=== PATIENT | female | born 1985 | race Caucasian/White ===

== ENCOUNTER 2018-08-12 14:14 | Emergency (ER) | payer SELFPAY ==
[2018-08-12] MEDS ORDERED: Albuterol/Ipratropium 3.0-0.5 MG/3 ML Neb Soln NEB ONE (14:38)
[2018-08-12] MEDS ORDERED: Ketorolac 60 MG/2 ML SDV IM ONE (14:38)
--- NOTE | 2018-08-12 14:43 | EDM.PDOC ---
ED HPI GENERAL MEDICAL PROBLEM - General Chief Complaint: Respiratory Problem Stated Complaint: PAIN IN RIBS Time Seen by Provider: 08/12/18 14:21 Source of Information: Reports: Patient History Limitations: Reports: No Limitations - History of Present Illness INITIAL COMMENTS - FREE TEXT/NARRATIVE: History of present illness: []Patient fell 2 weeks ago hitting her left ribs and has had pain with breathing and has developed cough severe pain in the left ribs. Fevers, chills or shortness of breath. Review of systems: As per history of present illness and below otherwise all systems reviewed and negative. Past medical history: As per history of present illness and as reviewed below otherwise noncontributory. Surgical history: As per history of present illness and as reviewed below otherwise noncontributory. Social history: No reported history of drug or alcohol abuse. Family history: As per history of present illness and as reviewed below otherwise noncontributory. Physical exam: General: Well developed, well nourished in NAD HEENT: Atraumatic, normocephalic, pupils reactive, negative for conjunctival pallor or scleral icterus, mucous membranes moist, throat clear, neck supple, nontender, trachea midline. Lungs: Wheezing and coarse to auscultation, breath sounds equal bilaterally, chest tender, no crepitance. Heart: S1S2, regular, negative for clicks, rubs, or JVD. Abdomen: NABS, Soft, nondistended, nontender. Negative for masses or hepatosplenomegaly. Negative for costovertebral tenderness. Pelvis: Stable nontender. Genitourinary: Deferred. Rectal: Deferred. Extremities: Atraumatic, negative for cords or calf pain. Neurovascular unremarkable. Neuro: Awake, alert, oriented. Cranial nerves II through XII unremarkable. Cerebellum unremarkable. Motor and sensory unremarkable throughout. Exam nonfocal. Skin:warm and dry Diagnostics: Chest x-ray with left rib films-no pneumothorax Therapeutics: Toradol, DuoNeb ED Course: Stable Impression: Left eighth and ninth rib mild buckling fractures, nondisplaced Prescriptions: Albuterol, tramadol Plan: Take meds as directed, follow up with your primary care physician, return to ER if symptoms worsen or change. Definitive disposition and diagnosis as appropriate pending reevaluation and review of above. Left Chest Pain Score (Numeric/FACES): 8 - Related Data Allergies Allergy/AdvReac Type Severity Reaction Status Date / Time hydrocodone [From Vicodin] Allergy Nausea and Verified 08/12/18 15:27 Vomiting Home Meds: Home Meds Albuterol Sulfate 1 dose NEB ASDIRECTED PRN 08/12/18 [History] Albuterol [Ventolin HFA] 2 puff INH Q4HR PRN #1 inhaler 08/12/18 [Rx] Albuterol/Ipratropium [Combivent Respimat] 2 puff INH DAILY 08/12/18 [History] Albuterol/Ipratropium [DuoNeb 3.0-0.5 MG/3 ML] 1 dose NEB ASDIRECTED PRN [History] Fluticasone Propionate [Flovent HFA] 2 puff INH 08/12/18 [History] oxyCODONE HCl/Acetaminophen [Percocet 5-325 mg Tablet] 1 tab PO BID 08/12/18 [ History] predniSONE [Prednisone] 10 mg PO DAILY 08/12/18 [History] traMADol HCl [Tramadol HCl] 50 mg PO Q6H PRN #16 tablet 08/12/18 [Rx] ED ROS GENERAL - Review of Systems Review Of Systems: ROS reveals no pertinent complaints other than HPI. ED EXAM, GENERAL - Physical Exam Exam: See Below (See history of present illness) Course - Vital Signs Last Recorded V/S: Last Vital Signs Temp 98.0 F 08/12/18 14:34 Pulse 97 08/12/18 14:34 Resp 20 08/12/18 14:34 BP 143/84 H 08/12/18 14:34 Pulse Ox 98 08/12/18 14:34 - Orders/Labs/Meds Orders: Active Orders 24 hr Category Date Time Status RT Aerosol Therapy [RC] ASDIRECTED Care 08/12/18 14:39 Active Meds: Medications Discontinued Medications Generic Name Dose Route Start Last Admin Trade Name Freq PRN Reason Stop Dose Admin Albuterol/Ipratropium 3 ml 08/12/18 14:38 08/12/18 14:56 Duoneb 3.0-0.5 Mg/3 Ml NEB 08/12/18 14:39 3 ml ONETIME ONE Administration Ketorolac Tromethamine 60 mg 08/12/18 14:38 08/12/18 15:07 Toradol IM 08/12/18 14:39 60 mg ONETIME ONE Administration Departure - Departure Time of Disposition: 15:44 Disposition: Home, Self-Care 01 Condition: Good Clinical Impression: Rib fractures Qualifiers: Fracture type: closed Laterality: left Fracture healing: with routine healing - Discharge Information *PRESCRIPTION DRUG MONITORING PROGRAM REVIEWED*: No *COPY OF PRESCRIPTION DRUG MONITORING REPORT IN PATIENT ILAN: No Prescriptions: Albuterol [Ventolin HFA] 2 puff INH Q4HR PRN #1 inhaler PRN Reason: Shortness Of Breath traMADol HCl [Tramadol HCl] 50 mg PO Q6H PRN #16 tablet PRN Reason: Pain Referrals: PCP,Unknown [Primary Care Provider] - Forms: ED Department Discharge Additional Instructions: The following information is given to patients seen in the emergency department who are being discharged to home. This information is to outline your options for follow-up care. We provide all patients seen in our emergency department with a follow-up referral. The need for follow-up, as well as the timing and circumstances, are variable depending upon the specifics of your emergency department visit. If you don't have a primary care physician on staff, we will provide you with a referral. We always advise you to contact your personal physician following an emergency department visit to inform them of the circumstance of the visit and for follow-up with them and/or the need for any referrals to a consulting specialist. The emergency department will also refer you to a specialist when appropriate. This referral assures that you have the opportunity for follow-up care with a specialist. All of these measure are taken in an effort to provide you with optimal care, which includes your follow-up. Under all circumstances we always encourage you to contact your private physician who remains a resource for coordinating your care. When calling for follow-up care, please make the office aware that this follow-up is from your recent emergency room visit. If for any reason you are refused follow-up, please contact the [facility] Emergency Department at and asked to speak to the emergency department charge nurse. Take meds as directed, follow up with your primary care physician, return to ER if symptoms worsen or change. [facility] [address] [place] [id number] - My Orders Last 24 Hours: My Active Orders 08/12/18 14:39 RT Aerosol Therapy [RC] ASDIRECTED - Assessment/Plan Last 24 Hours: My Active Orders 08/12/18 14:39 RT Aerosol Therapy [RC] ASDIRECTED
--- NOTE | 2018-08-12 15:40 | CR ---
EXAMINATION: Left ribs HISTORY: Fall COMPARISON: None TECHNIQUE: 2 views FINDINGS/IMPRESSION: Slight buckling of the eighth and ninth rib fractures, which may suggest subtle nondisplaced fractures. No displaced rib fracture, pneumothorax, or pleural effusion identified. The left lung otherwise appears clear.
== END 2018-08-12 15:56 | disposition home or self-care (01) ==
LOC: MW.ED 14:14
DX: S22.42XD Multiple fractures of ribs, left side, subsequent encounter for fracture with routine healing (principal); Z88.8 Allergy status to other drugs, medicaments and biological substances; W01.198D Fall on same level from slipping, tripping and stumbling with subsequent striking against other object, subsequent encounter
CPT/HCPCS: 71100; 94640; 96372; 99283; J1885; J7620-GY